=== PATIENT | female | born 1970 | race Caucasian/White ===

== ENCOUNTER 2016-11-08 19:11 | Emergency (ER) | payer BC ==
[~2016-11-08] VITALS: Ht 162.6 cm; Wt 115.5 kg
[2016-11-08] MEDS ORDERED: IBUP-1114 PO (19:42)
[2016-11-08 22:21] VITALS: BP 157/97
--- NOTE | 2016-11-09 09:19 | REP ---
LEFT FOREARM SERIES: 11/08/2016. CLINICAL HISTORY: Trauma. FINDINGS: The two views show the radius and ulna intact without a fracture. Radial head and capitellum align normally. The elbow and wrist show no definite fracture. IMPRESSION: 1. No fracture, avulsion or foreign body about the left forearm. Signed by Hakan Peña MD 11/09/2016 10:52 A
== END 2016-11-08 22:27 | disposition home or self-care (01) ==
LOC: M ED 21:13
DX: S50.02XA Contusion of left elbow, initial encounter (principal); W01.198A Fall on same level from slipping, tripping and stumbling with subsequent striking against other object, initial encounter; Y92.89 Other specified places as the place of occurrence of the external cause; Y93.02 Activity, running; Y99.9 Unspecified external cause status